=== PATIENT | female | born 1945 | race Caucasian/White ===

== ENCOUNTER → 2016-09-04 | Outpatient (CLI) | payer OTHER ==
[~2016-09-04] MED LIST: ASPIRIN325 MG PO; CARDIZEM; CLARITIN10 MG PO; CRESTOR10 MG PO; CRESTOR20 MG PO; Cardizem CD,Cartia X PO; Claritin,Alavart PO; DILTIAZEM 24HR120 MG PO; Ecotrin PO; FORTAMET500 M1 PO; Glucophage PO; HALFPRIN162 MG PO; LORATADINE; LORTAB 5-325 M1 EACH PO; MEDROL DOSEPAK4 MG PO; NORVASC5 MG PO; OMEPRAZOLE20 M3 PO; OMEPRAZOLE20 MG PO; PRILOSEC20 MG PO; SKELAXIN800 MG PO; VISINE A.C300 DROP/1 BOTH EYES
== END | disposition home or self-care (01) ==
LOC: RAD 10:42
DX: G89.28 Other chronic postprocedural pain (principal); M54.2 Cervicalgia; Z88.8 Allergy status to other drugs, medicaments and biological substances
CPT/HCPCS: 70491

== ENCOUNTER → 2017-02-19 | Outpatient (CLI) | payer OTHER | END | disposition home or self-care (01) | LOC: RAD 13:49 | DX: R14.0 Abdominal distension (gaseous) (principal) | CPT/HCPCS: 76856 ==